=== PATIENT | female | born 1980 | race Caucasian/White ===

== ENCOUNTER 2016-07-22 20:58 | Emergency (ER) | payer OTHER | END 2016-07-23 04:00 | disposition home or self-care (01) | LOC: ER1 20:58 | DX: L50.0 Allergic urticaria (principal); F17.210 Nicotine dependence, cigarettes, uncomplicated; I10 Essential (primary) hypertension; G25.81 Restless legs syndrome; Z79.899 Other long term (current) drug therapy | CPT/HCPCS: 84703; 96374; 96375; 99283; J1200; J2930 ==

== ENCOUNTER → 2020-08-16 | Outpatient (CLI) | payer OTHER | LOC: RAD 11:45 | DX: M54.2 Cervicalgia (principal); M54.9 Dorsalgia, unspecified | CPT/HCPCS: 71046; 72050; 72072; 72110 ==

== ENCOUNTER 2020-12-27 15:03 | Emergency (ER) | payer OTHER ==
[2020-12-27 17:10] LABS: HEMOGLOBIN 12.8 gm/dl (12.3-15.3); RED BLOOD COUNT 4.3 M/UL (4.00-5.10); WHITE BLOOD COUNT 6.6 K/UL (4.5-11.0)
[2020-12-27 17:33] LABS: BUN/CREATININE RATIO 20 (0-10)
[2020-12-27] MEDS ORDERED: CYCLOBENZAPRINE10 MG PO (18:30)
[2020-12-27] MEDS ORDERED: PREDNISONE20 MG PO (18:30)
== END 2020-12-27 19:00 | disposition home or self-care (01) ==
LOC: ER1 15:03
PROVIDERS: Emergency Medicine
DX: S16.1XXA Strain of muscle, fascia and tendon at neck level, initial encounter (principal); S46.911A Strain of unspecified muscle, fascia and tendon at shoulder and upper arm level, right arm, initial encounter; M54.6 Pain in thoracic spine; E66.01 Morbid (severe) obesity due to excess calories; F17.200 Nicotine dependence, unspecified, uncomplicated; W19.XXXA Unspecified fall, initial encounter
CPT/HCPCS: 71045; 72125; 72128; 73030; 80053; 82550; 82553; 83874; 84484; 85025; 93005; 99284

== ENCOUNTER 2021-08-16 18:20 | Emergency (ER) | payer OTHER ==
[~2021-08-16 18:20] MED LIST: CYCLOBENZAPRINE10 MG PO; PREDNISONE20 MG PO
[2021-08-16 20:30] LABS: BUN/CREATININE RATIO 10 (0-10)
[2021-08-16 21:07] LABS: HEMOGLOBIN 13.8 gm/dl (12.3-15.3); RED BLOOD COUNT 4.74 M/UL (4.00-5.10); WHITE BLOOD COUNT 3.5 K/UL (4.5-11.0)
[2021-08-16] MEDS ORDERED: OMNICEF 300 MG300 MG PO (21:33)
[2021-08-16] MEDS ORDERED: PREDNISONE 20 M20 MG PO (21:33)
== END 2021-08-16 21:41 | disposition home or self-care (01) ==
LOC: ER1 18:20
PROVIDERS: Student in an Organized Health Care Education/Training Program
DX: U07.1 COVID-19 (principal); J12.82 Pneumonia due to coronavirus disease 2019; J06.9 Acute upper respiratory infection, unspecified; I10 Essential (primary) hypertension; F17.200 Nicotine dependence, unspecified, uncomplicated
CPT/HCPCS: 0240U; 71045; 80053; 82550; 82553; 84484; 85025; 94664; 96374; 99285; J1100